=== PATIENT | male | born 1995 | race African-American/Black ===

== ENCOUNTER 2020-02-11 19:30 | Emergency (ER) | payer SELFPAY ==
[2020-02-11] MEDS ORDERED: Mag-Al 1200 mg/1200 mg/30 ML UDCUP ONE (20:39)
[2020-02-11] MEDS ORDERED: Lidocaine Viscous Sol 2% 15 ml UD Cup ONE (20:39)
== END 2020-02-11 21:10 | disposition home or self-care (01) ==
LOC: ERS 19:30
DX: R09.89 Other specified symptoms and signs involving the circulatory and respiratory systems (principal)
CPT/HCPCS: 99283